=== PATIENT | male | born 1955 ===

== ENCOUNTER 2016-10-05 10:54 | Emergency (ER) | payer OTHER ==
[2016-10-05 11:14] VITALS: TEMP 98.5
[2016-10-05] MEDS ORDERED: Sodium Chloride 0.9% 1,000 ML IV STA (11:39)
--- NOTE | 2016-10-05 11:47 | ED PDOC ---
HPI: General Adult Time Seen by Provider: 10/05/16 11:06 Chief Complaint (Nursing): Male Genitourinary History Per: Patient Additional Complaint(s): Pt. states for the past 4 days he's had middle lower back pain radiating to his lower abdomen associated with dysuria, frequency, and urgency. States he's had similar pain in the past when he was dx as having a kidney stone (4 episodes, last episode in 2009, has had lithotripsy each time). Denies N/V/D, fever, incontinence, trauma, saddle paresthesias. Past Medical History Reviewed: Historical Data, Nursing Documentation, Vital Signs Vital Signs: Last Vital Signs Temp 98.5 F 10/05/16 11:11 Pulse 77 10/05/16 11:11 Resp 18 10/05/16 11:11 BP 150/101 H 10/05/16 11:11 Pulse Ox 97 10/05/16 11:48 - Medical History PMH: HTN, Kidney Stones - Family History Family History: States: No Known Family Hx - Home Medications Home Medications: Ambulatory Orders Medication Instructions Recorded Naproxen [Naprosyn] 500 mg PO BID PRN #30 tab 10/05/16 Tamsulosin [Flomax] 0.4 mg PO DAILY #7 cap 10/05/16 oxyCODONE/Acetaminophen [Percocet 1 - 2 tab PO Q8 PRN #12 tab 10/05/16 5/325 mg Tab] - Allergies Allergies/Adverse Reactions: Allergies Allergy/AdvReac Type Severity Reaction Status Date / Time No Known Allergies Allergy Verified 10/05/16 11:11 Review of Systems ROS Statement: Except As Marked, All Systems Reviewed And Found Negative Genitourinary Male: Positive for: Dysuria, Frequency Musculoskeletal: Positive for: Back Pain Physical Exam - Physical Exam Appears: Positive for: Well, Non-toxic, Uncomfortable Head Exam: Positive for: ATRAUMATIC, NORMAL INSPECTION, NORMOCEPHALIC Skin: Positive for: Normal Color, Warm. Negative for: Rash Eye Exam: Positive for: EOMI, Normal appearance, PERRL ENT: Positive for: Normal ENT Inspection Neck: Positive for: Normal, Painless ROM Cardiovascular/Chest: Positive for: Regular Rate, Rhythm Respiratory: Positive for: CNT, Normal Breath Sounds Gastrointestinal/Abdominal: Positive for: Normal Exam, Soft. Negative for: Tenderness Back: Positive for: Normal Inspection. Negative for: L CVA Tenderness, R CVA Tenderness, Vertebral Tenderness Extremity: Positive for: Normal ROM Neurologic/Psych: Positive for: Alert, Oriented - Laboratory Results Result Diagrams: 10/05/16 12:00 10/05/16 12:00 - ECG O2 Sat by Pulse Oximetry: 97 - Progress ED Course And Treament: Labs ordered. Toradol 15mg IV given. On re-evaluation, pt. reports good relief of pain. CT abd/pelvis w/o contrast: There are bilateral renal calculi with what appears represent a tiny calculi within the distal left ureter as detailed above. Correlation with urinalysis. The left kidney is diminutive with cortical volume loss and cortical scarring. Bilateral renal cysts. Pt. searched on [facility] and last narcotic Rx was on 02/26/15 for Percocet. Pt. will be Rx Percocet x 3 days, naproxen, flomax. Pt. told to f/u with urologist. Disposition - Clinical Impression Clinical Impression: Nephrolithiasis - Patient ED Disposition Is Patient to be Admitted: No - Disposition Referrals: Morales Plata Jr., MD [Staff Provider] - Disposition: Routine/Home Disposition Time: 14:29 Condition: IMPROVED Prescriptions: Naproxen [Naprosyn] 500 mg PO BID PRN #30 tab PRN Reason: Pain oxyCODONE/Acetaminophen [Percocet 5/325 mg Tab] 1 - 2 tab PO Q8 PRN #12 tab PRN Reason: pain Tamsulosin [Flomax] 0.4 mg PO DAILY #7 cap Instructions: Kidney Stones (ED), How to Strain Your Urine (ED) Print Language: SLOVENIAN
[2016-10-05 12:12] LABS: BASO % 0.5 % (0.0-2.0); EOS # 1.8 K/uL (0.0-0.7); EOS % 21.1 % (0.0-4.0); HEMATOCRIT 45.4 % (35.0-51.0); LYMPH # 1.3 K/uL (1.0-4.3); LYMPH % 14.7 % (20.0-40.0); MEAN CELL VOLUME 90.9 fl (80.0-94.0); MEAN CORPUSCULAR HEMOGLOBIN 30.7 pg (27.0-31.0); MEAN CORPUSCULAR HGB CONC 33.7 g/dL (33.0-37.0); MEAN PLATELET VOLUME 8.7 fl (7.2-11.7); MONO % 11.3 % (0.0-10.0); NEUT # 4.5 K/uL (1.8-7.0); NEUT % 52.4 % (50.0-75.0); NRBC % 0.1 % (0.0-0.0); PLATELET COUNT 267 K/uL (130-400); RED CELL DISTRIBUTION WIDTH 13.6 % (11.5-14.5); WHITE BLOOD COUNT 8.7 K/uL (4.8-10.8)
[2016-10-05 12:13] LABS: RBC URINE 1 /hpf (0-3); URINE BILIRUBIN NEGATIVE (NEGATIVE); URINE BLOOD NEGATIVE (NEGATIVE); URINE COLOR YELLOW (YELLOW); URINE GLUCOSE (UA) NEG (Normal); URINE KETONE NEGATIVE (NEGATIVE); URINE LEUKOCYTE ESTERASE NEG Leu/uL (Negative); URINE PROTEIN 30 mg/dL (NEGATIVE); URINE UROBILINOGEN 0.2-1.0 mg/dL (0.2-1.0); WBC URINE 3 /hpf (0-5)
[2016-10-05 12:23] LABS: ALB/GLOB RATIO 1.1 (1.0-2.1); ALKALINE PHOSPHATASE 59 U/L (38-126); ALT/SGPT 47 U/L (21-72); AST/SGOT 32 U/L (17-59); BILIRUBIN,TOTAL 0.6 mg/dl (0.2-1.3); BLOOD UREA NITROGEN 23 mg/dl (9-20); CALCIUM 10.3 mg/dL (8.4-10.2); CARBON DIOXIDE 24 mmol/L (22-30); CHLORIDE 103 mmol/L (98-107); GFR AFRICAN-AMERICAN > 60; GLUCOSE,RANDOM 86 mg/dL (75-110); POTASSIUM 4.4 MMOL/L (3.6-5.0); SODIUM 140 mmol/l (132-148)
--- NOTE | 2016-10-05 13:24 | CT ---
PROCEDURE: CT abdomen pelvis dated 10/05/2016 HISTORY: Low back pain COMPARISON: No prior TECHNIQUE: Contiguous axial images of the abdomen and pelvis. Oral contrast was administered. No IV contrast given. Coronal and Sagittal reformats generated. Radiation dose: Total exam DLP = 1298.08 mGy-cm. This CT exam was performed using one or more of the following dose reduction techniques: Automated exposure control, adjustment of the mA and/or kV according to patient size, and/or use of iterative reconstruction technique. FINDINGS: LOWER THORAX: Mild passive type -dependent atelectasis both posterior lower lung zones. No effusion or basilar pneumothorax. There is a small hiatal hernia with wall thickening of the distal esophagus that could be due to protrusion of gastric mucosa. Possibility of esophagitis not excluded. LIVER: The liver exhibits normal size measuring approximately 14.7 cm in CC dimension. The liver exhibits heterogeneous somewhat geographic areas of low attenuation likely representing fatty hepatic infiltration. . Hernandez nonemergent on CT scan of the liver could be performed to confirm GALLBLADDER AND BILE DUCTS: Gallbladder. Appears incompletely distended. No evidence of intraluminal the gallbladder calculi. PANCREAS: The pancreas is minimally atrophic and fatty replaced. The SPLEEN: Unremarkable. No splenomegaly. ADRENALS: No adrenal lesions KIDNEYS AND URETERS: Appears to be some of the left kidney is diminutive with areas of cortical volume loss and scarring compared the right. Multiple small low-attenuation foci seen scattered throughout the kidney consistent with renal cysts. There are also multiple varying sized. Approximately 4.45 mm date calculus midpole left kidney. Localized dilatation short-segment lower left ureter in addition, there also appear to be several tiny calculi within the distal left ureter best appreciated on axial image number [id number]. Correlation with urinalysis suggested. Small approximately 4.3 mm calculus upper/ midpole right kidney with punctate calculus seen lower pole right kidney. Approximately 2.5 cm cyst upper pole right kidney. BLADDER: Urinary bladder is incompletely distended which may in part account for thick-walled appearance. Possibility of a cystitis not excluded. REPRODUCTIVE: Prostate gland is approximately 4.8 cm in transverse dimension. Few prostatic calcifications are present. Seminal vesicles unremarkable. APPENDIX: The normal-appearing appendix best seen on axial image number [id number]. No periappendiceal inflammatory changes. . BOWEL: Evaluation of the bowel is limited due to the lack of oral contrast material. Stomach is incompletely distended which presumably accounts for thick-walled appearance. Gastritis not excluded. Visualized loops of small bowel exhibit normal contour and caliber. No evidence of acute mechanical small bowel obstruction. Few scattered colonic diverticula however no radiographic evidence of acute diverticulitis. PERITONEUM: Unremarkable. No fluid collection. No free air. Small fat containing umbilical hernia. . Small fat containing inguinal left inguinal hernia. LYMPH NODES: No significant adenopathy VASCULATURE: Unremarkable. No aortic aneurysm. BONES: Mild multilevel degenerative spondylosis of the lower thoracic and lumbar spine. Small to medium sized central and bilateral disc herniation L4-L5 level. OTHER FINDINGS: None. IMPRESSION: There are bilateral renal calculi with what appears represent a tiny calculi within the distal left ureter as detailed above. Correlation with urinalysis. The left kidney is diminutive with cortical volume loss and cortical scarring. Bilateral renal cysts. Findings consistent with fatty hepatic infiltration. Followup nonemergent CT scan of the liver could be performed for further evaluation Scattered colonic diverticula however no radiographic evidence acute diverticulitis. See above discussion for additional details an incidental findings.
[2016-10-05 13:46] LABS: EOSINOPHIL 19 % (0-7); NEUTROPHIL 56 % (42-75); REACTIVE LYMPHOCYTES 1 % (0-0); TOTAL CELLS COUNTED 100
[2016-10-05 14:39] VITALS: BP 145/89; PULSE 79; RESP 16; O2SAT 100
== END 2016-10-05 14:39 | disposition home or self-care (01) ==
LOC: H.ER 10:54
DX: N20.0 Calculus of kidney (principal); I10 Essential (primary) hypertension; N28.1 Cyst of kidney, acquired

== ENCOUNTER 2017-05-15 10:27 | Emergency (ER) | payer OTHER ==
[2017-05-15 10:31] VITALS: BP 134/75; PULSE 65; RESP 16; TEMP 98.2; O2SAT 100
[2017-05-15] MEDS ORDERED: Sodium Chloride 0.9% 1,000 ML IV STA (11:11)
[2017-05-15] MEDS ORDERED: Propofol 10 mg/ml Inj (20 ML) IV ONE (11:16)
--- NOTE | 2017-05-15 11:48 | ED PDOC ---
HPI: Back Time Seen by Provider: 05/15/17 10:56 Chief Complaint (Nursing): Back Pain Chief Complaint (Provider): Back Pain History Per: Patient History/Exam Limitations: no limitations Additional Complaint(s): 62 year old male presents to the emergency department with a complaint of a lower back pain and right flank pain that radiates down the right lower abdomen and right leg for several days. Reports he went to his primary care doctor who prescribed Percocet without the relief of symptoms. States he has a history of kidney stones and says symptoms are similar to prior history although the right leg pain is prior to back pain. Patient also states a burning sensation with urination. Denies any blood in urine or fever. Of note, patient had a MRI completed of the spine without abnormalities. Never seen a specialist for back pain. Past Medical History Reviewed: Historical Data, Nursing Documentation, Vital Signs Vital Signs: Last Vital Signs Temp 98.2 F 05/15/17 10:30 Pulse 65 05/15/17 10:30 Resp 16 05/15/17 10:30 BP 134/75 05/15/17 10:30 Pulse Ox 100 05/15/17 10:30 - Medical History PMH: HTN, Kidney Stones - Surgical History Other surgeries: Laser Stone Surgery - Family History Family History: States: Unknown Family Hx - Social History Current smoker - smoking cessation education provided: No Alcohol: Social Drugs: Denies - Home Medications Home Medications: Ambulatory Orders Medication Instructions Recorded Tamsulosin [Flomax] 0.4 mg PO DAILY #7 cap 10/05/16 Atenolol/Chlorthalidone [Tenoretic 1 tab PO DAILY 12/10/16 50 Tablet] Atorvastatin [Lipitor] 1 tab PO DAILY 12/10/16 Cyclobenzaprine [Cyclobenzaprine 10 mg PO Q8 #9 tab 12/10/16 HCl] Ibuprofen [Motrin] 600 mg PO TID #30 tab 12/10/16 Lidocaine 5% [Lidoderm] 1 ea TD DAILY #10 patch 12/10/16 Losartan Potassium 1 tab PO DAILY 12/10/16 metFORMIN [glucOPHAGE] 1 tab PO BID 12/10/16 Cyclobenzaprine [Cyclobenzaprine 10 mg PO Q8 PRN #9 tab 05/15/17 HCl] Naproxen [Naprosyn] 500 mg PO BID PRN #14 tablet 05/15/17 - Allergies Allergies/Adverse Reactions: Allergies Allergy/AdvReac Type Severity Reaction Status Date / Time No Known Allergies Allergy Verified 10/05/16 11:11 Review of Systems ROS Statement: Except As Marked, All Systems Reviewed And Found Negative (As per HPI, otherwise negative) Constitutional: Negative for: Fever Gastrointestinal: Positive for: Abdominal Pain (Right lower) Genitourinary Male: Positive for: Dysuria. Negative for: Hematuria Musculoskeletal: Positive for: Back Pain (Lower back pain with right flank pain) , Leg Pain (Right) Physical Exam - Reviewed Nursing Documentation Reviewed: Yes Vital Signs Reviewed: Yes - Physical Exam Appears: Positive for: Non-toxic, In Acute Distress (Mild pain discomfort) Head Exam: Positive for: ATRAUMATIC, NORMAL INSPECTION, NORMOCEPHALIC Skin: Positive for: Normal Color, Warm, Dry Cardiovascular/Chest: Positive for: Regular Rate, Rhythm. Negative for: Murmur Respiratory: Positive for: Normal Breath Sounds. Negative for: Accessory Muscle Use, Respiratory Distress Gastrointestinal/Abdominal: Positive for: Normal Exam, Soft. Negative for: Tenderness Back: Positive for: R CVA Tenderness, Other (Pain significant to lumbar with hypertonicity and tenderness with loss of range of motion of the lower back). Negative for: Normal Inspection, L CVA Tenderness Extremity: Positive for: Normal ROM. Negative for: Pedal Edema, Swelling Neurologic/Psych: Positive for: Alert, Oriented (x3) - Laboratory Results Result Diagrams: 05/15/17 11:33 05/15/17 11:33 - ECG O2 Sat by Pulse Oximetry: 100 (RA) Pulse Ox Interpretation: Normal Medical Decision Making Medical Decision Making: Time: 1114 Initial Impression: Lower back pain and right flank pain Initial Plan: --CMP --CBC w/ diff --Propofol 50 mg iV --Morphine 2 mg IV --Sodium Chloride 1L IV --Toradol 30 mg IV --Tylenol 650 mg PO --Urinalysis --Abd & Pelvis CT --Reevaluation Time: 1321 --Abd & Pelvis CT FINDINGS: LOWER THORAX: Unremarkable. LIVER: Normal size, contour. Diffusely diminished attenuation consistent with fatty infiltration. No mass. No biliary dilatation. GALLBLADDER AND BILE DUCTS: Unremarkable. PANCREAS: Unremarkable. No gross lesion or ductal dilatation. SPLEEN: Unremarkable. ADRENALS: Unremarkable. No mass. KIDNEYS AND URETERS: Unremarkable. No hydronephrosis. No solid mass2-3 mm nonobstructing calculus lower pole right kidney, unchanged. Previously identified nonobstructing right upper pole renal calculus is no longer evident. There is a cortical cyst in the upper pole right kidney, 2.6 cm diameter, measuring 11 Hounsfield units. Multiple left renal cysts. Multifocal left renal cortical scarring. Multiple nonobstructing left renal calculi. 4 mm mid left renal calculus. Multiple lower pole calculi, largest 5 mm. There is persistent appearance of multiple small nonobstructing calculi in the distal left ureter proximal to the ureterovesical junction. These calculi measure 3-4 mm maximum diameter. They are unchanged in number and location when compared to the prior examination. There is no hydroureter. There is no right ureteral calculus. . VASCULATURE: Unremarkable. No aortic aneurysm. BOWEL: Unremarkable. No obstruction. No gross mural thickening. APPENDIX: Unremarkable. Normal appendix. PERITONEUM: Unremarkable. No free fluid. No free air. LYMPH NODES: Unremarkable. No enlarged lymph nodes. BLADDER: Unremarkable. REPRODUCTIVE: Unremarkable prostate BONES: No acute fracture. OTHER FINDINGS: None. IMPRESSION: Multifocal left renal cortical scarring. Multiple left renal cysts. Right upper pole renal cyst. Bilateral nonobstructing renal calculi. Multiple small nonobstructing distal left ureteral calculi unchanged from 10/05/2016. Fatty liver. Time: 1403 Upon provider reevaluation patient is feeling better, is medically stable, and requires no further treatment in the ED at this time. Patient will be discharged home with Rx for Cyclobenzaprine HCl 10 mg and Naprosyn 500 mg. Counseling was provided and all questions were answered regarding diagnosis and need for follow up with Dr. Home López DO. There is agreement to discharge plan. Return if symptoms persist or worsen. Clinical Impression: Back Pain Scribe~Attestation: Documented by Cathi Araya, acting as a scribe for Morales Linn DO. Provider Scribe~Attestation: All medical record entries made by the Scribe were at my direction and personally dictated by me. I have reviewed the chart and agree that the record accurately reflects my personal performance of the history, physical exam, medical decision making, and the department course for this patient. I have also personally directed, reviewed, and agree with the discharge instructions and disposition. Disposition - Clinical Impression Clinical Impression: Back pain - Patient ED Disposition Is Patient to be Admitted: No Counseled Patient/Family Regarding: Studies Performed, Diagnosis, Need For Followup, Rx Given - Disposition Referrals: Home López DO [[facility]] - Disposition: Routine/Home Disposition Time: 14:03 Condition: STABLE Additional Instructions: See back specialist for possible injection, rehab or further imaging/testing Return to ER for any worse or new symptoms Take pain medicine as directed Do not drive or operate machinery while taking pain medicine or muscle relaxant Use extra caution walking on ice or snow Prescriptions: Cyclobenzaprine [Cyclobenzaprine HCl] 10 mg PO Q8 PRN #9 tab PRN Reason: Muscle Spasm Naproxen [Naprosyn] 500 mg PO BID PRN #14 tablet PRN Reason: Pain, Moderate (4-7) Instructions: Kidney Stones (ED), Acute Low Back Pain (ED) Forms: [facility] (Kenyan) Print Language: CHINESE
[2017-05-15 11:56] LABS: BASO # 0.1 K/uL (0.0-0.2); BASO % 0.8 % (0.0-2.0); EOS # 1.5 K/uL (0.0-0.7); EOS % 18.3 % (0.0-4.0); HEMOGLOBIN 14.5 g/dL (12.0-18.0); LYMPH # 1.6 K/uL (1.0-4.3); LYMPH % 20.1 % (20.0-40.0); MEAN CELL VOLUME 90.5 fl (80.0-94.0); MEAN CORPUSCULAR HEMOGLOBIN 30.6 pg (27.0-31.0); MEAN CORPUSCULAR HGB CONC 33.8 g/dL (33.0-37.0); MONO # 0.8 K/uL (0.0-0.8); MONO % 9.3 % (0.0-10.0); NEUT # 4.2 K/uL (1.8-7.0); NEUT % 51.5 % (50.0-75.0); RBC 4.74 Mil/uL (4.40-5.90); RED CELL DISTRIBUTION WIDTH 12.9 % (11.5-14.5); WHITE BLOOD COUNT 8.2 K/uL (4.8-10.8)
[2017-05-15 12:06] LABS: SQUAMOUS EPITHIAL < 1 /hpf (0-5); URINE BILIRUBIN NEGATIVE (NEGATIVE); URINE BLOOD NEGATIVE (NEGATIVE); URINE CLARITY SLIGHTY-CLOUDY (Clear); URINE COLOR YELLOW (YELLOW); URINE GLUCOSE (UA) NEG (Normal); URINE HYALINE CAST 0-2 /hpf (0-2); URINE LEUKOCYTE ESTERASE NEG Leu/uL (Negative); URINE NITRATE NEGATIVE (NEGATIVE); URINE PROTEIN 100 mg/dL (NEGATIVE)
[2017-05-15 12:43] LABS: ALBUMIN 4.4 g/dL (3.5-5.0); ALT/SGPT 82 U/L (21-72); AST/SGOT 50 U/L (17-59); BLOOD UREA NITROGEN 19 mg/dl (9-20); CALCIUM 9.8 mg/dL (8.4-10.2); GFR AFRICAN-AMERICAN > 60; GFR NON-AFRICAN AMERICAN > 60
[2017-05-15 12:44] LABS: ALB/GLOB RATIO 1.1 (1.0-2.1)
--- NOTE | 2017-05-15 13:23 | CT ---
PROCEDURE: CT Abdomen and Pelvis without intravenous contrast HISTORY: R flank pain hx renal colic, also low back pain COMPARISON: 10/05/2016 TECHNIQUE: Without contrast.. Contrast Dose: 0 Radiation dose: Total exam DLP = 938.82 mGy-cm. This CT exam was performed using one or more of the following dose reduction techniques: Automated exposure control, adjustment of the mA and/or kV according to patient size, and/or use of iterative reconstruction technique. FINDINGS: LOWER THORAX: Unremarkable. LIVER: Normal size, contour. Diffusely diminished attenuation consistent with fatty infiltration. No mass. No biliary dilatation. GALLBLADDER AND BILE DUCTS: Unremarkable. PANCREAS: Unremarkable. No gross lesion or ductal dilatation. SPLEEN: Unremarkable. ADRENALS: Unremarkable. No mass. KIDNEYS AND URETERS: Unremarkable. No hydronephrosis. No solid mass2-3 mm nonobstructing calculus lower pole right kidney, unchanged. Previously identified nonobstructing right upper pole renal calculus is no longer evident. There is a cortical cyst in the upper pole right kidney, 2.6 cm diameter, measuring 11 Hounsfield units. Multiple left renal cysts. Multifocal left renal cortical scarring. Multiple nonobstructing left renal calculi. 4 mm mid left renal calculus. Multiple lower pole calculi, largest 5 mm. There is persistent appearance of multiple small nonobstructing calculi in the distal left ureter proximal to the ureterovesical junction. These calculi measure 3-4 mm maximum diameter. They are unchanged in number and location when compared to the prior examination. There is no hydroureter. There is no right ureteral calculus. . VASCULATURE: Unremarkable. No aortic aneurysm. BOWEL: Unremarkable. No obstruction. No gross mural thickening. APPENDIX: Unremarkable. Normal appendix. PERITONEUM: Unremarkable. No free fluid. No free air. LYMPH NODES: Unremarkable. No enlarged lymph nodes. BLADDER: Unremarkable. REPRODUCTIVE: Unremarkable prostate BONES: No acute fracture. OTHER FINDINGS: None. IMPRESSION: Multifocal left renal cortical scarring. Multiple left renal cysts. Right upper pole renal cyst. Bilateral nonobstructing renal calculi. Multiple small nonobstructing distal left ureteral calculi unchanged from 10/05/2016. Fatty liver.
== END 2017-05-15 14:06 | disposition home or self-care (01) ==
LOC: H.ER 10:27
DX: M54.9 Dorsalgia, unspecified (principal); N28.1 Cyst of kidney, acquired; N20.2 Calculus of kidney with calculus of ureter; Z79.84 Long term (current) use of oral hypoglycemic drugs; I10 Essential (primary) hypertension
CPT/HCPCS: 74176; 80053; 81003; 85025; 96374; 96375; 99282; J1885; J2270; J7040